=== PATIENT | male | born 1995 | race Two or more races ===

== ENCOUNTER 2020-03-07 14:29 | Emergency (ER) | payer MEDICAID ==
[~2020-03-07] VITALS: Ht 175.3 cm; Wt 66.0 kg
[2020-03-07] MEDS ORDERED: ACETAMINOPHEN 325MG TABLET PO STA (15:39)
[2020-03-07] MEDS ORDERED: IBUPROFEN 600MG TABLET PO STA (15:39)
[2020-03-07] MEDS ORDERED: SODIUM CHLORIDE 0.9% 1,000 ML IV ONE (15:45)
[2020-03-07 15:59] LABS: HEMOGLOBIN. 15.5 g/dL (14.0-18.0); MEAN CORPUSCULAR HEMOGLOBIN 28.4 pg (28.0-32.0); MEAN CORPUSCULAR VOLUME 86.4 fL (80.0-94.0); MEAN PLATELET VOLUME 6.7 fl (7.4-10.4); PLATELET 388 x1000/uL (130-400); RED BLOOD CELL COUNT 5.43 mill/uL (4.7-6.1); RED CELL DISTRIBUTION WIDTH 15.4 % (11.6-14.6)
[2020-03-07 16:05] LABS: CLARITY URINE CLEAR (CLEAR); COLOR URINE YELLOW (YELLOW); KETONES URINE NEGATIVE (NEGATIVE); LEUKOCYTE ESTERASE URINE NEGATIVE (NEGATIVE); NITRITE URINE NEGATIVE (NEGATIVE); OCCULT BLOOD URINE NEGATIVE (NEGATIVE); PROTEIN URINE NEGATIVE (NEGATIVE); UROBILINOGEN URINE 0.2 E.U./dL (0.2-1.0)
[2020-03-07 16:05] LABS: CHLORIDE 104 mEq/L (98-107)
[2020-03-07 17:36] LABS: PLATELET ESTIMATE NORMAL
[2020-03-07 18:45] VITALS: BP 115/62
== END 2020-03-07 19:02 | disposition home or self-care (01) ==
LOC: ER 14:29
DX: R53.1 Weakness (principal); J18.9 Pneumonia, unspecified organism
CPT/HCPCS: 36415; 71045; 80053; 81003; 85025; 96360; 99284; J7030

== ENCOUNTER 2020-03-12 10:38 | Emergency (ER) | payer MEDICAID ==
[~2020-03-12] VITALS: Ht 180.3 cm; Wt 59.0 kg
[2020-03-12 12:00] VITALS: BP 121/78
== END 2020-03-12 12:00 | disposition home or self-care (01) ==
LOC: ER 10:38
DX: Z09 Encounter for follow-up examination after completed treatment for conditions other than malignant neoplasm (principal); J18.9 Pneumonia, unspecified organism; Z87.01 Personal history of pneumonia (recurrent)
CPT/HCPCS: 99281